=== PATIENT | female | born 2000 | race Caucasian/White ===

== ENCOUNTER 2021-02-05 15:00 | Emergency (ER) | payer OTHER, MEDICAID ==
[2021-02-05 15:18] VITALS: BP 123/61
--- NOTE | 2021-02-05 15:40 | ED Physician Documentation ---
History of Present Illness - Stated complaint Stated Complaint: BACK PX/OB - Chief complaint Chief Complaint: General - History obtained from History obtained from: Patient - Additonal information Additional information: 20-year-old at 16 weeks gestation who for the last 5 days has had what sounds like back contractions. About once every 2 hours she will have a 45- second contraction that she feels mostly in the back. There is no associated bleeding or fluid loss. No urinary complaints. Review of Systems Constitutional: denies: Fever, Chills GI: denies: Nausea, Vomiting : denies: Dysuria, Frequency PD PAST MEDICAL HISTORY - Allergies Allergies/Adverse Reactions: Allergies Allergy/AdvReac Type Severity Reaction Status Date / Time No Known Drug Allergies Allergy Verified 02/05/21 15:19 PD ED PE NORMAL - Vitals Vital signs reviewed: Yes - General General: Alert and oriented X 3, No acute distress - Abdomen Abdomen: Non tender, Other (Bedside ultrasound demonstrates single live intrauterine with a heart rate of about 150 and positive motion.) - Neuro Neuro: Alert and oriented X 3, Normal speech Results - Vitals Vitals: Vital Signs - 24 hr 02/05/21 15:13 Temperature 36.7 C Heart Rate 103 H Respiratory 15 Rate Blood Pressure 123/61 O2 Saturation 100 Oxygen O2 Source Room air Departure - Departure Disposition: 01 Home, Self Care Clinical Impression: Ventura Chu' contraction Condition: Good Record reviewed to determine appropriate education?: Yes Instructions: ED Preg Established Normal Sxs Comments: You can take Tylenol as needed per package instructions for pain. Return if worsening or if you develop fluid loss or bleeding. Follow-up with your OB as scheduled.
== END 2021-02-05 16:39 | disposition home or self-care (01) ==
LOC: ED 15:00
DX: O47.02 False labor before 37 completed weeks of gestation, second trimester (principal); Z3A.16 16 weeks gestation of pregnancy
CPT/HCPCS: 99281; 99283

== ENCOUNTER 2021-07-08 11:10 | Outpatient (CLI) | payer OTHER, MEDICAID ==
[2021-07-08 11:22] VITALS: BP 127/69
[2021-07-08 11:57] LABS: RUPTURE OF MEMBRANES PLUS NEGATIVE (NEGATIVE)
--- NOTE | 2021-07-08 12:26 | PROVIDER PROGRESS NOTE ---
- HPI Chief Complaint: Leakage of vaginal fluid Current : Vital Signs Temperature 98.1 F 07/08/21 11:18 Heart Rate 94 07/08/21 11:18 Respiratory Rate 07/08/21 11:18 Blood Pressure 127/69 07/08/21 11:18 Temperature 98.1 F 07/08/21 11:18 Heart Rate 94 07/08/21 11:18 Respiratory Rate 07/08/21 11:18 Blood Pressure 127/69 07/08/21 11:18 O2 Saturation - Procedures OB Procedure Performed: NST Diagnosis/Indication for NST: Other (rule out rupture of membranes, false labor early term) NST Procedure: 140s, moderate variability, positive accelerations, no decelerations Contractions every few minutes, palpating mild NST reactive - Plan Plan: 21yo at 38w presenting with leaking fluid. care at [facility] and she was driving back from her routine appointment today when she felt leaking. She was examined at her appointment this morning and was 3cm per patient. Uncomfortable with contractions every few minutes. Denies vaginal bleeding. Good movement. records reviewed from [place]. complicated by smoking tobacco in , anxiety/depression, obesity. NKDA Meds: denies Med: anxiety/depression Surg: denies OB: x2 Social: tobacco use, denies alcohol or drug use Fam: noncontributory VSS GEN: NAD CV: Regular rate Resp: Breathing unlabored Abd: soft, nt, contractions mild SVE: 3/50/-3 Ext: nt NST reactive 21yo at 38w, false labor - NST reactive - Labor precautions and comfort measures reviewed - Discharge to home, follow up with primary OB as scheduled
== END 2021-07-08 12:25 | disposition home or self-care (01) ==
LOC: WFO 11:10 → FBP 11:22 → WFO 12:25
PROVIDERS: ATTEND Obstetrics & Gynecology
DX: O47.1 False labor at or after 37 completed weeks of gestation (principal); O99.333 Smoking (tobacco) complicating pregnancy, third trimester; Z3A.38 38 weeks gestation of pregnancy
CPT/HCPCS: 84112; 99214

== ENCOUNTER 2021-07-24 00:29 | Emergency (ER) | payer OTHER, MEDICAID ==
[2021-07-24 00:37] VITALS: BP 122/77
[2021-07-24 00:53] LABS: BILIRUBIN,URINE NEGATIVE (NEGATIVE); GLUCOSE, URINE (UA) NEGATIVE (NEGATIVE); KETONES,URINE (UA) NEGATIVE (NEGATIVE); LEUKOCYTE ESTERASE, URINE SMALL (NEGATIVE); NITRITE,URINE NEGATIVE (NEGATIVE); OCCULT BLOOD,URINE MODERATE (NEGATIVE); PROTEIN,URINE NEGATIVE (NEGATIVE); UROBILINOGEN,URINE 0.2 (NORMAL) E.U./dL (NORMAL)
[2021-07-24 01:00] LABS: CLARITY,URINE CLEAR (CLEAR)
[2021-07-24 01:03] LABS: BACTERIA,URINE Rare /HPF (None Seen); SQUAMOUS EPITHELIAL CELL,UR FEW Squamous (<= Few); WBC,URINE 0-3 /HPF (0-5)
--- NOTE | 2021-07-24 01:39 | ED Physician Documentation ---
History of Present Illness - Stated complaint Stated Complaint: BACK PX - Chief complaint Chief Complaint: Back Pain - History obtained from History obtained from: Patient - Additonal information Additional information: Patient comes to the emergency department chief complaint of back pain for about the past 3 weeks but worse last night. Patient states that she just gave vaginally about a week ago at 39 weeks, and began complaining to her OB about mid back pain about 3 weeks ago. The patient had multiple urinalyses done and all were negative. She states her OB, who is up at [place], told her that she did not think there was any concern at this point and no further testing was done at that time. The patient states her and delivery were otherwise uncomplicated. She was given hydrocodone after the and is also had ibuprofen at home, but states that the meds that she took yesterday, including 3 tablets of hydrocodone, did not seem to be helpful. The patient denies fever or chills. No nausea or vomiting. She states that the pain seemed to suddenly get worse and that it is more on the right than the left. Patient states that both her father and sister have a history of kidney stones and she is wondering if this is what is going on. However, she does note that the pain seems to jump between five, and that a couple of days ago, it was on the left. No shortness of breath or cough. No abdominal pain. She states her lochia is down to just brown spotting. She is breast-feeding. No other complaints at this time. Review of Systems Ten Systems: 10 systems reviewed and negative Constitutional: reports: Reviewed and negative Eyes: reports: Reviewed and negative Ears: reports: Reviewed and negative Nose: reports: Reviewed and negative Throat: reports: Reviewed and negative Cardiac: reports: Reviewed and negative Respiratory: reports: Reviewed and negative GI: reports: Reviewed and negative : reports: Reviewed and negative Skin: reports: Reviewed and negative Musculoskeletal: reports: Back pain Neurologic: reports: Reviewed and negative Psychiatric: reports: Reviewed and negative Endocrine: reports: Reviewed and negative Immunocompromised: reports: Reviewed and negative PD PAST MEDICAL HISTORY - Past Surgical History Past Surgical History: No - Present Medications Home Medications: Ambulatory Orders Medication Instructions Recorded Confirmed Docusate Sodium 100Mg Capsule 100 mg PO ONCE 07/24/21 07/24/21 [Colace 100Mg Capsule] Ibuprofen [Motrin] 600 mg PO Q6H PRN 07/24/21 07/24/21 Nitrofurantoin [Macrobid] 100 mg PO BID #14 07/24/21 - Allergies Allergies/Adverse Reactions: Allergies Allergy/AdvReac Type Severity Reaction Status Date / Time No Known Drug Allergies Allergy Verified 07/24/21 00:37 - Social History Does the pt smoke?: No Smoking Status: Never smoker Does the pt have substance abuse?: No - Immunizations Immunizations are current?: Yes - POLST Patient has POLST: No PD ED PE NORMAL - Vitals Vital signs reviewed: Yes - General General: Alert and oriented X 3, No acute distress, Well developed/nourished, Other (Well-appearing patient) - HEENT HEENT: Atraumatic, PERRL, EOMI, Moist mucous membranes - Neck Neck: Supple, no meningeal sign - Cardiac Cardiac: RRR, No murmur, Strong equal pulses - Respiratory Respiratory: No respiratory distress, Clear bilaterally - Abdomen Abdomen: Soft, Non tender, Other (Distended but soft abdomen, consistent with recent full-term gravid state.) - Back Back: No CVA TTP, No spinal TTP, Other (Muscular tenderness bilaterally in the inferior thoracic and superior lumbar paraspinal area, as well as the intrascapular area.) - Derm Derm: Normal color, Warm and dry, No rash - Extremities Extremities: No deformity, No tenderness to palpate, Normal ROM s pain, No edema, No calf tenderness / cord - Neuro Neuro: Alert and oriented X 3, grievance coordinator 2-12 intact, Normal speech, Other (Grossly intact) - Psych Psych: Normal mood, Normal affect Results - Vitals Vitals: Vital Signs - 24 hr 07/24/21 07/24/21 00:34 03:03 Temperature 36.5 C Heart Rate 73 Respiratory 18 16 Rate Blood Pressure 122/77 O2 Saturation 97 Oxygen O2 Source Room air - Labs Labs: Laboratory Tests 07/24/21 00:43 Urine Color YELLOW Urine Clarity CLEAR Urine pH 6.0 Ur Specific [place] 1.025 Urine Protein NEGATIVE Urine Glucose (UA) NEGATIVE Urine Ketones NEGATIVE Urine Occult Blood MODERATE H Urine Nitrite NEGATIVE Urine Bilirubin NEGATIVE Urine Urobilinogen 0.2 (NORMAL) Ur Leukocyte Esterase SMALL H Urine RBC 6-10 H Urine WBC 0-3 Ur Squamous Epith Cells FEW Squamous Urine Bacteria Rare Ur Microscopic Review INDICATED Urine Culture Comments INDICATED - Rads (name of study) CT abdomen and pelvis Radiology: Final report received, EMP read indepedently, See rad report (Negative) PD MEDICAL DECISION MAKING - ED course Complexity details: reviewed old records, reviewed results, re-evaluated patient, considered differential, d/w patient ED course: I discussed with the patient that I suspect her symptoms are most likely musculoskeletal in nature. The patient was worked up with urinalysis which showed a mild amount of leukocyte esterase and some red blood cells. The patient had had a low level of pain for the last few weeks but sudden onset of more severe pain with localization to the right, and given her family history of kidney stones, I felt it was reasonable to explore this possibility with the CT scan. In the meantime, the patient was treated symptomatically with Decadron as she is breast-feeding. The patient CT scan was unremarkable. I will treat her for urinary tract infection, as her urine is mildly positive; however, I have advised the patient that her back pain itself is most likely to be musculoskeletal and will likely be self-limited. We have discussed symptomatic management at home and the usual indications for return. Departure - Departure Disposition: 01 Home, Self Care Clinical Impression: Back pain Qualifiers: Back pain location: thoracic back pain Chronicity: acute Back pain laterality: bilateral Qualified Code(s): M54.6 - Pain in thoracic spine UTI (urinary tract infection) Qualifiers: Urinary tract infection type: acute cystitis Hematuria presence: with hematuria Qualified Code(s): N30.01 - Acute cystitis with hematuria Condition: Stable Instructions: ED Neck Back Pain General, ED UTI Cystitis Female Prescriptions: Nitrofurantoin [Macrobid] 100 mg PO BID #14 Comments: Your urinalysis shows mild findings of infection. Your labs look good. Your CT scan of the abdomen is normal. There is no evidence of a kidney stone or of any structural abnormality of your back. Most likely, the pain is secondary to late , and the various changes that occur with this, as we have discussed. Given that ligaments and tendons also loosen up in preparation for the baby's , you are also more prone to musculoskeletal pain, especially about the pelvis and back, for this reason as well. As your body recovers from the and , your back pain will most likely improve. Please talk to your doctor about strengthening exercises and other tips to improve your pain. Discharge Date/Time: 07/24/21 03:05
[2021-07-24] MEDS: DEXAMETHASONE 10 MG/ML VIAL IM STA (01:40)
--- NOTE | 2021-07-24 07:34 | CT Report ---
PROCEDURE: Abdomen/Pelvis WO INDICATIONS: flank pain R TECHNIQUE: Noncontrast 5 mm thick sections acquired from the diaphragms to the symphysis. 5 mm coronal and sagi ttal reformats were then performed. For radiation dose reduction, the following was used: automated exposure control, adjustment of mA and/or kV according to patient size. COMPARISON: None. FINDINGS: Image quality: Excellent. ABDOMEN: Lung bases: Lung bases are clear. Heart size is normal. Solid organs: Liver and spleen are normal in size. Gallbladder is within normal limits Pancreas is normal in contours. No adrenal nodules. Kidneys are normal in size, without hydronephrosis. Possib le 1-2 mm stone noted in the lower pole of the left kidney. Peritoneum and bowel: Unenhanced bowel loops demonstrate normal wall thickness and caliber. No free fluid or air. The appendix is normal. Nodes and vessels: No retroperitoneal or mesenteric adenopathy by size criteria. Aorta and inferior vena cava are normal in caliber. Miscellaneous: No ventral hernias. PELVIS: Genitourinary: Bladder wall thickness is normal. uterus noted. Miscellaneous: No inguinal hernias or adenopathy. Bones: No suspicious bony lesions. No vertebral body compression fractures. IMPRESSION: 1. No hydronephrosis. 2. Possible 1-2 mm nonobstructing stone in the lower pole left kidney. 3. uterus. 4. No free fluid or free air. 5. Appendix is normal. Reviewed by: Luz Elena Vuong MD, PhD on 07/24/2021 7:32 AM [facility] Approved by: Luz Elena Vuong MD, PhD on 07/24/2021 7:32 AM [facility] Station ID: [id number]
== END 2021-07-24 03:05 | disposition home or self-care (01) ==
LOC: ED 00:29
DX: M54.6 Pain in thoracic spine (principal); N30.01 Acute cystitis with hematuria
CPT/HCPCS: 81001; 81003; 87086; 96372; 99282; 99284

== ENCOUNTER 2022-03-21 18:39 | Emergency (ER) | payer OTHER, MEDICAID ==
[2022-03-21] MEDS ORDERED: IBUPROFEN 800 MG TABLET PO STA (20:01)
--- NOTE | 2022-03-21 20:02 | ED Physician Documentation ---
PD HPI UPPER EXT INJURY - Stated complaint Stated Complaint: FINGER LAC - Chief complaint Chief Complaint: Laceration - History obtained from History obtained from: Patient - Additonal information Additional information: She cut the tip off her dominant, right index finger while using a knife at home just prior to arrival. Tetanus is unknown but per the EMR she had 1 in April of last year. Review of Systems Constitutional: reports: Reviewed and negative Eyes: reports: Reviewed and negative Ears: reports: Reviewed and negative Nose: reports: Reviewed and negative PD PAST MEDICAL HISTORY - Past Medical History Past Medical History: Yes Cardiovascular: None Respiratory: None Neuro: None Endocrine/Autoimmune: None GI: None SUPPORTABILITY ENGINEER: None : None HEENT: None Psych: ADD/ADHD Musculoskeletal: None Derm: None - Past Surgical History Past Surgical History: No - Present Medications Home Medications: Ambulatory Orders Medication Instructions Recorded Confirmed Dextroamphetamine/Amphetamine 10 mg PO DAILY 02/02/22 02/02/22 [Dextroamp-Amphetamine 5 mg Tab] - Allergies Allergies/Adverse Reactions: Allergies Allergy/AdvReac Type Severity Reaction Status Date / Time No Known Drug Allergies Allergy Verified 03/21/22 19:00 - Social History Does the pt smoke?: No Smoking Status: Never smoker Does the pt drink ETOH?: No Does the pt have substance abuse?: No - Immunizations Immunizations are current?: Yes - POLST Patient has POLST: No PD ED PE NORMAL - Vitals Vital signs reviewed: Yes - General General: Alert and oriented X 3, No acute distress - Extremities Extremities: Other (She has about a 0.5 cm fingertip amputation that is hemostatic of the right index finger.) - Neuro Neuro: Alert and oriented X 3, Normal speech Results - Vitals Vitals: Vital Signs - 24 hr 03/21/22 19:01 Temperature 36.4 C L Heart Rate 85 Respiratory 16 Rate Blood Pressure 122/69 O2 Saturation 98 Oxygen O2 Source Room air PD MEDICAL DECISION MAKING - ED course ED course: Wound was irrigated and dressed with Gelfoam and tube gauze. She was counseled on wound care. Departure - Departure Disposition: 01 Home, Self Care Clinical Impression: Fingertip amputation Qualifiers: Encounter type: initial encounter Qualified Code(s): S68.119A - Complete traumatic metacarpophalangeal amputation of unspecified finger, initial encounter Condition: Good Record reviewed to determine appropriate education?: Yes Instructions: ED Laceration Amputation Finger Tip Open Tx Comments: For your records, your last tetanus shot was April 2021 so you are current. Keep the current dressing on for about 48 hours. After which you can wash briefly with soap and water and then apply bacitracin ointment which is available [id number] and a Band-Aid. Then you can use that Metal splint. You will likely have to do that once a day for a week or 2 and then it should healing completely. Return for new or worsening symptoms.
[2022-03-21 20:13] VITALS: BP 125/68
== END 2022-03-21 20:11 | disposition home or self-care (01) ==
LOC: ED 18:39
DX: S68.119A Complete traumatic metacarpophalangeal amputation of unspecified finger, initial encounter (principal); W26.0XXA Contact with knife, initial encounter; Y92.009 Unspecified place in unspecified non-institutional (private) residence as the place of occurrence of the external cause
CPT/HCPCS: 99282; A9270

== ENCOUNTER 2023-04-03 07:16 | Emergency (ER) | payer MEDICAID, OTHER ==
[2023-04-03 07:43] VITALS: BP 112/60; O2SAT 100
--- OUTSIDE RECORDS SUMMARY | 2023-04-03 07:52 | EXTERNAL MEDICAL SUMMARY RPT | Continuity of Care Document ---
Author Name Unknown Address [address] [place] [address] Phone Organization [facility] Address [address] [place] [address] Phone Care Team Providers Care Volleyball Assembler Name Role Phone Jocelyn Powell Unavailable Unavailable Medications date description facility 2023-01-05 00:00 Ondansetron [facility] 2023-02-23 00:00 Fluconazole [facility] 2023-02-02 00:00 Cephalexin [facility] 2023-01-05 00:00 Hydroxyzine Hcl [facility] Problems date description facility 2023-02-02 00:00 Possible exposure to STD [facility] 2023-02-02 00:00 Encounter for superv ision of other normal in second trimester [facility] 2023-02-02 11:05 Encounter for screen ing for infections with a [facility] 2023-02-02 11:05 Contact with and (sanchez spected) exposure to infections with a [facility] 2023-02-04 02:10 Encounter for screen ing for infections with a [facility] 2023-02-04 02:10 Contact with and (sanchez spected) exposure to infections with a [facility] 2023-03-02 00:00 [facility] Encounter for superv ision of other normal , [facility] 2023-03-02 08:36 20 weeks gestation of [facility] 2023-03-02 15:49 Encounter for superv ision of other normal , [facility] 2023-03-02 15:49 20 weeks gestation of [facility] 2023-03-29 10:25 state, gestational car [facility] Procedures date description facility 2023-03-02 00:00 Obstetrical ultrasou nd of uterus with single at 14 weeks gestation or [facility] Results/Labs test date facility value unit notes Social History date description facility 2023-01-05 00:00 Ex-smoker (finding) [facility] 2023-02-02 00:00 Ex-smoker (finding) [facility] 2023-03-02 00:00 Ex-smoker (finding) [facility] 2023-03-29 00:00 Ex-smoker (finding) [facility] Vital Signs date measurement value units 2023-01-05 00:00 BMI 35.8 kg/m2 2023-01-05 00:00 BP_diastolic 76 mmHg 2023-01-05 00:00 BP_systolic 112 mmHg 2023-01-05 00:00 height_metric 157.48 cm 2023-01-05 00:00 height_standard 62 in 2023-01-05 00:00 weight_metric 88.9 kg 2023-01-05 00:00 weight_standard 195.99 lb 2023-02-02 00:00 BMI 35.3 kg/m2 2023-02-02 00:00 BP_diastolic 76 mmHg 2023-02-02 00:00 BP_systolic 124 mmHg 2023-02-02 00:00 heart_rate 105 /min 2023-02-02 00:00 height_metric 157.48 cm 2023-02-02 00:00 height_standard 62 in 2023-02-02 00:00 o2_saturation 100 % 2023-02-02 00:00 weight_metric 87.54 kg 2023-02-02 00:00 weight_standard 192.99 lb 2023-03-02 00:00 BMI 36.9 kg/m2 2023-03-02 00:00 BP_diastolic 68 mmHg 2023-03-02 00:00 BP_systolic 106 mmHg 2023-03-02 00:00 height_metric 157.48 cm 2023-03-02 00:00 height_standard 62 in 2023-03-02 00:00 weight_metric 91.68 kg 2023-03-02 00:00 weight_standard 202.12 lb 2023-03-29 00:00 BMI 37.6 kg/m2 2023-03-29 00:00 BP_diastolic 64 mmHg 2023-03-29 00:00 BP_systolic 130 mmHg 2023-03-29 00:00 height_metric 157.48 cm 2023-03-29 00:00 height_standard 62 in 2023-03-29 00:00 weight_metric 93.44 kg 2023-03-29 00:00 weight_standard 206 lb
[2023-04-03 07:55] LABS: RAPID STREP SCREEN POSITIVE (Negative)
--- NOTE | 2023-04-03 08:00 | ED Physician Documentation ---
PD HPI HEENT - Stated complaint Stated Complaint: THOAT PX/SWELLING NECK - Chief complaint Chief Complaint: Heent - History obtained from History obtained from: Patient - History of Present Illness Timing - onset: Yesterday Timing - duration: Days (1) Timing - details: Gradual onset, Still present Location: Throat Improves: Medication Worsens: Swalllowing Associated symptoms: Congestion, Swollen nodes. No: Fever, Cough Similar symptoms before: Has not had sx before Recently seen: Clinic (26wks as a serogate) - Additional information Additional information: 23-year-old Andrez Mcdonnell is 26 weeks as a surrogate and yesterday she began to get a sore throat and swollen lymph glands. She has not had fever or cough. She has not had this happen to her previously. Review of Systems Constitutional: denies: Fever Eyes: denies: Decreased vision Ears: reports: Loss of hearing ( similar to always). denies: Ear pain Nose: reports: Congestion. denies: Rhinorrhea / runny nose Throat: reports: Sore throat Cardiac: denies: Chest pain / pressure, Palpitations Respiratory: denies: Dyspnea, Cough GI: denies: Nausea, Vomiting, Constipation, Diarrhea PD PAST MEDICAL HISTORY - Past Medical History Cardiovascular: None Respiratory: None Neuro: None Endocrine/Autoimmune: None GI: None FIREFIGHTER MARINE: None : None HEENT: None Psych: ADD/ADHD Musculoskeletal: None Derm: None - Past Surgical History Past Surgical History: No - Present Medications Home Medications: Ambulatory Orders Medication Instructions Recorded Confirmed Amoxicillin 875 mg PO BID #20 tablet 04/03/23 - Allergies Allergies/Adverse Reactions: Allergies Allergy/AdvReac Type Severity Reaction Status Date / Time No Known Drug Allergies Allergy Verified 04/03/23 07:32 - Social History Does the pt smoke?: No Smoking Status: Never smoker Does the pt drink ETOH?: No Does the pt have substance abuse?: No - Immunizations Immunizations are current?: Yes - POLST Patient has POLST: No PD ED PE NORMAL - Vitals Vital signs reviewed: Yes (Tachycardic mild) - General General: Alert and oriented X 3, No acute distress, Well developed/nourished - HEENT HEENT: Atraumatic, PERRL, EOMI, Ears normal, Moist mucous membranes, Other (2+ cryptic exudative tonsils.) - Neck Neck: Supple, no meningeal sign, No bony TTP, Other (Tender submandibular adeno gilmar bilateral) - Cardiac Cardiac: RRR, No murmur - Respiratory Respiratory: No respiratory distress, Clear bilaterally - Abdomen Abdomen: Soft, Non tender - Back Back: No CVA TTP, No spinal TTP - Derm Derm: Normal color, Warm and dry, No rash - Extremities Extremities: No deformity, No edema - Neuro Neuro: Alert and oriented X 3, electrical electronics engineers 2-12 intact, No motor deficit, No sensory deficit, Normal speech Eye Opening: Spontaneous Motor: Obeys Commands Verbal: Oriented GCS Score: 15 - Psych Psych: Normal mood, Normal affect Results - Vitals Vitals: Vital Signs - 24 hr 04/03/23 07:27 Temperature 36.8 C Heart Rate 104 H Respiratory 16 Rate Blood Pressure 112/60 O2 Saturation 100 Oxygen O2 Source Room air - Labs Labs: Laboratory Tests 04/03/23 07:34 Group A Strep Rapid POSITIVE H PD Medical Decision Making - ED course Complexity details: considered differential, d/w patient Reviewed Lab Results: We obtained a throat swab for detection of Streptococcus in a rapid fashion. This test was positive for Streptococcus. My interpretation of this under the circumstances of this patient's presentation is that she has streptococcal pharyngitis, indicating a specific course of treatment. ED course: 23-year-old female 26 weeks with streptococcal pharyngitis and cryptic exudative tonsils. She is administered 10 mg of dexamethasone and we will place her on a course of amoxicillin. Departure - Departure Disposition: 01 Home, Self Care Clinical Impression: Streptococcal tonsillitis Condition: Stable Instructions: ED Strep Pharyngitis Conf Follow-Up: HIRAL BARRON MD [Primary Care Provider] - Prescriptions: Amoxicillin 875 mg PO BID #20 tablet Comments: Andrez, today it looks like you have streptococcal tonsillitis and there is a specific treatment regimen for this. I [facility] E [facility] [place]. It will be important to finish off the entire course of this medication. Our expectations with treatment are improvement today and continued improvement. There are crypts and exudate on your tonsils and gargling with warm water with a little bit of salt in it will help rinse off the bacteria and exudate.
[2023-04-03] MEDS ORDERED: CHERRY SYRUP 10 ML UDC PO ONE (08:11)
[2023-04-03] MEDS ORDERED: DEXAMETHASONE 10 MG/ML VIAL PO STA (08:11)
== END 2023-04-03 08:31 | disposition home or self-care (01) ==
LOC: ED 07:16
DX: O26.892 Other specified pregnancy related conditions, second trimester (principal); Z3A.26 26 weeks gestation of pregnancy; J03.00 Acute streptococcal tonsillitis, unspecified
CPT/HCPCS: 87430; 99283; A9270